=== PATIENT | male | born 1985 | race Caucasian/White ===

== ENCOUNTER 2017-03-16 18:27 | Emergency (ER) | payer OTHER ==
[~2017-03-16] VITALS: Ht 172.7 cm; Wt 59.2 kg
[~2017-03-16 18:27] MED LIST: DOXEPIN HCL50 MG PO; FLEXERIL10 MG PO; MOTRIN800 MG PO; ZOFRAN4 MG PO; ZOLOFT50 MG PO
[2017-03-16] MEDS ORDERED: NAPROSYN500 MG PO (19:05)
[2017-03-16 19:22] VITALS: BP 119/73
== END 2017-03-16 19:29 | disposition home or self-care (01) ==
LOC: EME 18:27
DX: M25.562 Pain in left knee (principal); X50.1XXA Overexertion from prolonged static or awkward postures, initial encounter; F17.200 Nicotine dependence, unspecified, uncomplicated
CPT/HCPCS: 99281; 99283

== ENCOUNTER 2018-02-09 17:17 | Emergency (ER) | payer OTHER ==
[~2018-02-09] VITALS: Ht 172.7 cm; Wt 60.2 kg
[~2018-02-09 17:17] MED LIST changes: +NAPROSYN500 MG PO
[2018-02-09] MEDS ORDERED: NAPROSYN500 MG PO (19:02)
[2018-02-09 19:29] VITALS: BP 127/80
== END 2018-02-09 19:29 | disposition home or self-care (01) ==
LOC: EME 17:17
DX: S40.012A Contusion of left shoulder, initial encounter (principal); W51.XXXA Accidental striking against or bumped into by another person, initial encounter; Y93.E9 Activity, other interior property and clothing maintenance; F17.200 Nicotine dependence, unspecified, uncomplicated
CPT/HCPCS: 73000; 99281; 99284